=== PATIENT | male | born 1955 | race Caucasian/White ===

== ENCOUNTER 2022-01-01 10:37 | Emergency (ER) | payer OTHER, SELFPAY ==
[2022-01-01 10:49] VITALS: BP 133/96; PULSE 78; RESP 16; TEMP 37; O2SAT 99
--- NOTE | 2022-01-01 11:55 | ED.SKABFB ---
HPI - Skin/Abscess/Foreign Bdy General Chief complaint: Skin/Abscess/Foreign Body Stated complaint: left infected thumb Time Seen by Provider: 01/01/22 11:56 Source: patient, RN notes reviewed and old records reviewed Mode of arrival: ambulatory Limitations: no limitations History of Present Illness HPI narrative: 66 [facility] complaints of possible infection to his left thumb around his nail bed on radial side for one week duration with increased pain and swelling noted to area. Patient reports that some purulent drainage was noted from side of nail bed earlier in the week. Patient reports that he has been soaking his thumb in warm soapy water and applying some antibiotic ointment. Patient reports no injury or any fevers. MD complaint: other (paronychia) Onset (ago): week(s) (1) Treatments prior to arrival: OTC topical medication and other (soaking in warm soapy water) Related Data Home Medications Medication Instructions Recorded Confirmed citalopram 20 mg tablet 1 tablet PO DAILY 01/01/22 01/01/22 finasteride 5 mg tablet 1 tablet PO DAILY 01/01/22 01/01/22 levothyroxine 50 mcg tablet 1 tablet PO DAILY 01/01/22 01/01/22 (Euthyrox) Allergies Allergy/AdvReac Type Severity Reaction Status Date / Time No Known Allergies Allergy Verified 01/01/22 11:17 Review of Systems Review of Systems: CONSTITUTIONAL: Denies fever, chills, or sweats. EYES: Denies visual changes, redness, or discharge. ENT: Denies rhinorrhea, congestion, sore throat, or otalgia. CARDIOVASCULAR: Denies chest pain, palpitations, or edema. RESPIRATORY: Denies cough or dyspnea. GASTROINTESTINAL: Denies abdominal pain, nausea, vomiting, or diarrhea. GENITOURINARY: Denies dysuria or hematuria. SKIN: Denies rash or itcing.paronychia to radial side of left thumb nail no present drainage MUSCULOSKELETAL: Denies back pain, joint pain, or myalgia. NEUROLOGIC: Denies headache, numbness, or weakness. PSYCHIATRIC: Positive for history of anxiety or depression. All systems reviewed & are unremarkable except as noted in HPI and below PMFSH Past Medical History Medical History (Updated 01/04/22 @ 09:05 by Bridget Gupta NP) BPH (benign prostatic hyperplasia) Depression Hypothyroid Social History Social History (Updated 01/04/22 @ 09:05 by Bridget Gupta NP) Smoking status: Never smoker Gender identity (if verbalized by the patient): Male Comments At time of signature, agree with nursing past medical, surgical, social and family history. There is no relevant family history pertinent to the presenting complaint Exam Narrative: GENERAL: Well-appearing, well-nourished, and in no acute distress. HEAD: Normocephalic, atraumatic. EYES: PERRLA and EOMI. ENT: Nares clear, no rhinorrhea or epistaxis. Mucous membranes moist.TM's normal with good light reflex, throat pink with no lesions or exudates or tonsil swelling NECK: Supple.no lymphadenopathy CHEST: Clear to auscultation. No respiratory distress.SAO2 99% on room air HEART: Regular rate and rhythm. No murmur heard. Normal peripheral pulses. ABDOMEN: Soft, nontender, nondistended, normal active bowel sounds. EXTREMITIES: Normal range of motion. No edema. SKIN: Warm, dry, no rash. swelling pain and redness to left thumb distally around nail bed radial side, indurated. CSM intact to left thumb NEURO: No focal deficits. Alert and oriented x3. Course Course Level of Care: Express Care Visit Vital Signs Vital signs: Vital Signs Temperature 37.0 C 01/01/22 10:49 Pulse Rate 78 01/01/22 10:49 Respiratory Rate 16 01/01/22 10:49 Blood Pressure 133/96 H 01/01/22 10:49 Pulse Oximetry 99 01/01/22 10:49 Temperature 37.0 C 01/01/22 10:49 Pulse Rate 78 01/01/22 10:49 Respiratory Rate 16 01/01/22 10:49 Blood Pressure 133/96 H 01/01/22 10:49 Pulse Oximetry 99 01/01/22 10:49 Procedures Abscess I/D left thumb nailbed radial side:
== END 2022-01-01 12:19 | disposition home or self-care (01) ==
PROVIDERS: Emergency Provider Registered Nurse
DX: L03.012 Cellulitis of left finger (principal); N40.0 Benign prostatic hyperplasia without lower urinary tract symptoms; E03.9 Hypothyroidism, unspecified; F32.A Depression, unspecified
CPT/HCPCS: 10060; 99213; G0463

== ENCOUNTER 2022-01-19 11:17 | Emergency (ER) | payer OTHER, SELFPAY ==
[2022-01-19 11:25] VITALS: BP 120/79; PULSE 73; RESP 16; TEMP 36.4; O2SAT 98
--- NOTE | 2022-01-19 11:47 | ED.SKABFB ---
HPI - Skin/Abscess/Foreign Bdy General Chief complaint: Skin/Abscess/Foreign Body Stated complaint: L THUMB INFECTION Time Seen by Provider: 01/19/22 11:36 History of Present Illness HPI narrative: Patient is a 67-year-old male here for evaluation of a lesion to his left thumb. States that it first occurred on January 01, he went to an urgent care and had the area drained, and it was attributed to paronychia. He was placed on Keflex and was sent home after successful drainage. He states that the area began to reaccumulate pus about 3 days ago. Denies any fevers, chills, pain in the hand, difficulty moving the digit. Related Data Home Medications Medication Instructions Recorded Confirmed citalopram 20 mg tablet 1 tablet PO DAILY 01/01/22 01/01/22 finasteride 5 mg tablet 1 tablet PO DAILY 01/01/22 01/01/22 levothyroxine 50 mcg tablet 1 tablet PO DAILY 01/01/22 01/01/22 (Euthyrox) Allergies Allergy/AdvReac Type Severity Reaction Status Date / Time No Known Allergies Allergy Verified 01/01/22 11:17 Review of Systems Review of Systems: Gen.: Denies fevers or chills Eyes: Denies eye pain or visual change ENT: Denies congestion Respiratory: Denies shortness of breath or cough CV: Denies chest pain or palpitations GI: Denies abdominal pain nausea, emesis or diarrhea denies burning, urgency, frequency or hematuria Musculoskeletal: Denies back pain or muscle pain Neuro: Denies numbness, tingling, weakness or focal weakness Skin: Reports left thumb redness and swelling near the nailbed Except as documented, all other systems reviewed and negative FOR[facility]LY [facility] Past Medical History Medical History BPH (benign prostatic hyperplasia) Depression Hypothyroid Social History Social History (Updated 01/04/22 @ 09:05 by Bridget Gupta NP) Smoking status: Never smoker Gender identity (if verbalized by the patient): Male Exam Narrative: Gen: Alert, oriented, no acute distress Eyes: EOMI, no icterus Pulm: Respirations even and unlabored, symmetric thorax expansion, no audible stridor or visible cyanosis CV: Regular rate per telemetry GI: No distension, no voluntary/involuntary guarding Neuro: AOx4, moves all extremities without apparent difficulty or weakness, follows commands Skin: Patient has redness and swelling on the radial aspect of the left thumbnail with a area of induration and fluctuance near the nailbed. No tenderness or swelling along fingertip or flexor tendon, FROM in digits without pain. Psych: Normal mood/affect, insight/judgement good, adequate fund of knowledge, recent/remote memory intact Course Vital Signs Vital signs: Vital Signs Temperature 97.5 F L 01/19/22 11:25 Pulse Rate 73 01/19/22 11:25 Respiratory Rate 16 01/19/22 11:25 Blood Pressure 120/79 01/19/22 11:25 Pulse Oximetry 98 01/19/22 11:25 Oxygen Delivery Room Air 01/19/22 11:25 Temperature 97.5 F L 01/19/22 11:25 Pulse Rate 73 01/19/22 11:25 Respiratory Rate 16 01/19/22 11:25 Blood Pressure 120/79 01/19/22 11:25 Pulse Oximetry 98 01/19/22 11:25 Oxygen Delivery Room Air 01/19/22 11:25 Procedures Abscess I/D other: Date of Incision: 01/19/22 Time of Incision: 12:21 Side (if applicable): left Local Anesthetic: lidocaine 1% Amount of anesthesia used (mL): 3 Technique: other (digital block) Amount of fluid expressed (mL): 3 Irrigation: Yes Packing used?: none Abcess I&D Additional Comments: The paronychia was incised with a 21-gauge needle at the nail bed with expression of purulent material. MDM - Skin/Abscess/Foreign Bdy MDM Narrative Medical decision making narrative: 67-year-old male here for evaluation of what appears to be recurrence of paronychia to his left thumb. He has no swelling or tenderness along his flexor tendons to suggest flexor tenosynovitis, mohit
== END 2022-01-19 13:08 | disposition home or self-care (01) ==
PROVIDERS: Emergency Provider Emergency Medicine; PCP Family Medicine
DX: L03.012 Cellulitis of left finger (principal); N40.0 Benign prostatic hyperplasia without lower urinary tract symptoms; E03.9 Hypothyroidism, unspecified; F32.A Depression, unspecified
CPT/HCPCS: 10060; 26010; 99283

== ENCOUNTER 2022-03-05 12:05 | Outpatient (CLI) | payer OTHER, SELFPAY ==
--- NOTE | ~2022-03-05 | PE_ITS ---
EXAMINATION: PET_PETPSMAST_PT DATE: 03/05/2022 15:02 INDICATION: Malignant neoplasm of the prostate TECHNIQUE: 9.437 mCi of pipflufolastat F-18 (18-F-DCFPyL) was administered i.v. Low dose computed to mography (CT) images were acquired from the base of the brain to the base of the brain to the proxima l thighs for attenuation correction and anatomic localization. Positron emission tomography (PET) richard ges were acquired in the same distribution beginning 97 minutes after injection. Images including fus ed PET/CT images were reconstructed in axial, coronal, and sagittal planes. Automated exposure contro l technique was employed. The dose-length product was 1000.88mGy-cm. COMPARISON: None FINDINGS: Head/neck: Typical pattern of symmetric physiologic increased activity in the lacrimal, parotid and submandibula r glands as well as along the mucosa of the oropharynx and nasopharynx. There are multiple photopenic soft tissue density nodules in the bilateral parotid glands, the largest on the left measuring 3.0 x 2.6 cm which are without PSMA activity which could represent either primary parotid neoplasm or enla rged intraparotid lymph nodes. No other pathologically enlarged cervical lymphadenopathy or suspiciou s foci of increased uptake in the visualized head or neck. Chest: Peripheral and lower lung predominant groundglass opacities and irregular septal line thickening but without honeycombing in both lungs which could represent mild pulmonary edema, atelectasis or chronic interstitial lung disease with nonspecific interstitial pneumonia (NSIP) pattern. Small pneumatocele in the left upper lobe. Mild cardiomegaly. Atherosclerotic coronary artery calcific lesion. No peric ardial effusion. Vasculature is normal in caliber. Calcified left hilar and mediastinal lymph nodes c onsistent with old granulomatous disease. No pathologically enlarged or PSMA avid thoracic lymphadeno alexandre. Abdomen/pelvis/proximal thighs: Physiologic renal accumulation and excretion of activity in the kidneys, bladder and along portions o f ureters. Likely prior prostatectomy with slightly asymmetric mild uptake to the right of some resid ual likely prosthetic calcifications. Normal degree and slightly heterogenous pattern of increased up take throughout the liver and spleen without radiologic correlate or dominant PSMA avid lesion. A few small splenic calcifications consistent with old granulomatous disease. The gallbladder, pancreas an d bilateral adrenal glands are normal. Moderate uptake scattered throughout the bowels with typical d uodenal predominance and without radiologic correlate, also likely physiologic. There is mild colonic diverticulosis with a sigmoid predominance. There is no adjacent inflammatory change to suggest div erticulitis. No other abnormal foci of increased uptake or pathologically enlarged lymphadenopathy in the abdomen, pelvis or proximal thighs. Musculoskeletal: Severe cervical, thoracic and lumbar spondylosis. No suspicious lytic, blastic or PSMA avid bone lesi ons. IMPRESSION: 1. Mild asymmetric uptake at the right side of what is likely the prostatectomy bed. This could repre sent either urine activity or residual/recurrent local disease. No other lesions suspicious for metas tatic prostate cancer. 2. Multiple bilateral parotid nodules without increased PSMA uptake which could represent parotid zeinab plasm either benign or malignant or enlarged lymph nodes which could be either reactive, metastatic d isease or lymphoma. Correlate with clinical history and if this has not been previously worked up wou ld recommend ultrasound-guided fine-needle aspiration. Reviewed, dictated and finalized at location A.
== END 2022-03-05 12:06 | disposition home or self-care (01) ==
PROVIDERS: PCP Family Medicine; Visit Provider Urology
DX: Z03.89 Encounter for observation for other suspected diseases and conditions ruled out (principal); C61 Malignant neoplasm of prostate
CPT/HCPCS: 78815; A9595

== ENCOUNTER 2022-05-07 10:31 | Emergency (ER) | payer OTHER, SELFPAY ==
[2022-05-07 10:54] VITALS: BP 148/76; PULSE 77; RESP 16; TEMP 36.8; O2SAT 99
--- NOTE | 2022-05-07 11:17 | ED.SKABFB ---
HPI - Skin/Abscess/Foreign Bdy General Chief complaint: Skin/Abscess/Foreign Body Stated complaint: Left Hand Finger Pain Time Seen by Provider: 05/07/22 11:17 Source: patient Mode of arrival: ambulatory Limitations: no limitations History of Present Illness HPI narrative: 67 y/o male presented for c/o redness and pain with swelling to left index finger for 3 days. Pt has been soaking it but unable to get drainage out. Could not sleep due to pain last night. States he had similar symptoms to the thumb about 3 months ago, required 2 I&D and 2 courses of abx. Current radiation treatment for prostate cancer. Related Data Home Medications Medication Instructions Recorded Confirmed citalopram 20 mg tablet 1 tablet PO DAILY 01/01/22 05/07/22 finasteride 5 mg tablet 1 tablet PO DAILY 01/01/22 05/07/22 levothyroxine 50 mcg tablet 1 tablet PO DAILY 01/01/22 05/07/22 (Euthyrox) omeprazole 40 mg capsule,delayed 40 mg PO DAILY 05/07/22 05/07/22 release Allergies Allergy/AdvReac Type Severity Reaction Status Date / Time No Known Allergies Allergy Verified 05/07/22 10:44 Review of Systems Review of Systems: CONSTITUTIONAL: Denies body aches, fever, chills, or sweats. EYES: Denies visual changes, redness, or discharge. CARDIOVASCULAR: Denies chest pain, palpitations, or edema. RESPIRATORY: Denies cough or dyspnea. GASTROINTESTINAL: Denies abdominal pain, nausea, vomiting, or diarrhea. SKIN: Left index finger swelling and redness MUSCULOSKELETAL: Denies back pain, joint pain, or myalgia. NEUROLOGIC: Denies headache, numbness, tingling, or weakness. [facility] Past Medical History Medical History BPH (benign prostatic hyperplasia) Depression Hypothyroid Social History Social History Smoking status: Never smoker Gender identity (if verbalized by the patient): Male Comments At time of signature, I have reviewed and agree with nursing past medical, surgical, social and family history unless otherwise noted. Please see nursing chart for further information. There is no relevant family history pertinent to the presenting complaint Exam Narrative: GENERAL: Well-appearing EYES: conjunctivae clear, and EOMI. ENT: Mucous membranes moist. NECK: Supple. No lymphadenopathy CHEST: Clear to auscultation. HEART: Regular rate and rhythm. SKIN: Warm, dry. Left index finger with mild swelling tenderness, erythema, and fluctuance to radial aspect of nailbed c/w paronychia;no active drainage NEURO: Alert and oriented x3. Course Course Emergency Course: Patient is aware of diagnosis, understands and agrees to treatment plan. Anticipatory guidance given. Patient agrees to follow-up as directed and is aware of reasons to seek care at the emergency department. Portions of this record may have been created with voice recognition software Level of Care: Express Care Visit Vital Signs Vital signs: Vital Signs Temperature 98.2 F 05/07/22 10:54 Pulse Rate 77 05/07/22 10:54 Respiratory Rate 16 05/07/22 10:54 Blood Pressure 148/76 H 05/07/22 10:54 Pulse Oximetry 99 05/07/22 10:54 Oxygen Delivery Room Air 05/07/22 10:54 Temperature 98.2 F 05/07/22 10:54 Pulse Rate 77 05/07/22 10:54 Respiratory Rate 16 05/07/22 10:54 Blood Pressure 148/76 H 05/07/22 10:54 Pulse Oximetry 99 05/07/22 10:54 Oxygen Delivery Room Air 05/07/22 10:54 Reviewed Procedures Abscess I/D left hand 2nd digit: Date of Incision: 05/07/22 Technique: needle aspiration (#18) Irrigation: No Packing used?: none I&D Results: Pus Abcess I&D Additional Comments: soaked with primiderm. Site cleansed with alcohol. #18g needle inserted to site of fluctuance. Moderate amount prurulent material expelled without difficulty. Pt tolerated well. CRIS and bandaid applied.
== END 2022-05-07 11:40 | disposition home or self-care (01) ==
PROVIDERS: Emergency Provider Nurse Practitioner Family; PCP Family Medicine
DX: L03.012 Cellulitis of left finger (principal); N40.0 Benign prostatic hyperplasia without lower urinary tract symptoms; E03.9 Hypothyroidism, unspecified; F32.A Depression, unspecified
CPT/HCPCS: 10060; 99213; G0463